=== PATIENT | female | born 1975 | race Caucasian/White ===

== ENCOUNTER → 2017-09-13 | Outpatient (CLI) | payer OTHER ==
[~2017-09-13] MED LIST: CELEXA20 MG PO; LABETALOL 100100 MG PO; NORCO 5-325 TA1 EACH PO; TRINATE TABLET1 TAB PO
== END ==
LOC: M.RAD 15:39
DX: M47.814 Spondylosis without myelopathy or radiculopathy, thoracic region (principal); M47.817 Spondylosis without myelopathy or radiculopathy, lumbosacral region; M54.2 Cervicalgia